=== PATIENT | female | born 1965 | race Caucasian/White ===

== ENCOUNTER 2018-04-24 11:05 | Emergency (ER) | payer OTHER ==
[2018-04-24] MEDS: ACETAMINOPHEN 325 MG TAB PO (12:29)
[2018-04-24] MEDS: IBUPROFEN 200 MG TAB PO (12:31)
== END 2018-04-24 12:33 | disposition home or self-care (01) ==
LOC: FTE 11:05
DX: J03.90 Acute tonsillitis, unspecified (principal)
CPT/HCPCS: 99283; Z7502